=== PATIENT | female | born 2000 | race Caucasian/White ===

== ENCOUNTER → 2019-01-23 16:09 | Outpatient (CLI) | payer OTHER, SELFPAY ==
--- NOTE | 2019-01-23 16:14 | US_ITS ---
STUDY: FIRST TRIMESTER OBSTETRICAL ULTRASOUND REASON FOR EXAM: Female, 18 years old. viability. LMP: 12/03/2018 TECHNIQUE: Transvaginal TECHNICAL QUALITY: Adequate. PRIOR ULTRASOUND: None. FINDINGS: There is visualization of a single gestational sac in a normal intrauterine position. The mean sac diameter (MSD) measures 1.8 cm, indicating an estimated gestational age (EGA) of 6 weeks, 5 days. The gestational sac shape is within normal limits. There is a visualized yolk sac. The yolk sac measures 2.5 mm. The placenta is non-visualized. There is visualization of a live embryo. The crown-rump length (CRL) measures 0.7 cm, indicating an estimated gestational age (EGA) of 6 weeks, 5 days. There is demonstrated cardiac activity with a heart rate of 114/124 bpm. The estimated gestation age (EGA) by LMP is 7 weeks, 2 days. The estimated date of delivery (CATHERINE) by LMP is 09/09/2019 . The estimated gestation age (EGA) by US is 6 weeks, 5 days. The estimated date of delivery (CATHERINE) by US is 09/13/2019. The uterus measures 8.0 x 6.7 x 4.6 cm. There is no demonstrated uterine fibroid. The cervix is closed. The right ovary measures 3.1 x 2.8 x 1.8 cm. There is no right ovarian cyst. There is no visualized right adnexal mass or complex lesion. The left ovary measures 4.1 x 3.0 x 2.4 cm. There is a small complex follicle or left ovarian cyst measuring 1.8 x 1.5 x 1.3 cm. There is no visualized left adnexal mass or complex lesion. There is no fluid in the cul de sac. The trace fluid collection partially surrounding the gestational sac that measures approximately 2.3 x 0.2 cm. US/Transvaginal w/Preg US IMPRESSION: Single live intrauterine 6 weeks 5 days by ultrasound. Estimated delivery date 09/13/2019. The cardiac rate is on the low end of normal between 114 and 120. Small subchronic hemorrhage. Recommend short-term interval follow-up study within 7-14 days.. Electronically Signed: Anabell Werner MD at 16:13 EDT Tel , Service support ,
== END ==
PROVIDERS: Referring Provider Obstetrics & Gynecology; Visit Provider Obstetrics & Gynecology
DX: O36.80X0 Pregnancy with inconclusive fetal viability, not applicable or unspecified (principal); Z3A.00 Weeks of gestation of pregnancy not specified
CPT/HCPCS: 76817

== ENCOUNTER → 2019-02-13 11:34 | Outpatient (CLI) | payer OTHER, SELFPAY ==
[2019-02-13 10:42] VITALS: BMI 22.8
[2019-02-13 12:04] LABS: Absolute Lymphocyte Count 1.77 X10^3/uL (0.83-4.51); Absolute Neutrophil Count 5.6 X10^3/uL (2.0-7.7); Basophil# 0.03 X10^3/uL; Basophil% 0.4 % (0-1); Eosinophil# 0.13 X10^3/uL; Eosinophils% 1.6 % (0-5); Hematocrit 37.1 % (37-47); Hemoglobin 12.3 g/dL (12.0-15.0); Lymphocyte # 1.77 X10^3/ul (4.0); Lymphocyte % 22.2 % (19-41); Mean Corp Hgb Conc 33.2 g/dL (32-36); Mean Corpuscular Hgb 30.4 pg (27.0-32.0); Mean Corpuscular Volume 91.6 fL (81-99); Mean Platelet Vol. 9.8 fl (6.2-12.0); Monocyte# 0.44 X10^3/uL; Monocyte% 5.5 % (0-10); NRBC Flagged by Analyzer 0 % (0-5); Neutrophil # 5.56 X10^3/uL (2.7-7.7); Neutrophil % 69.7 % (47-70); Platelet Count 189 K/mm3 (150-450); RBC Distribution Width CV 13.2 % (11.6-14.6); RBC Distribution Width SD 43.5 fl (35.1-43.9); Red Blood Count 4.05 M/mm3 (4.2-5.4)
[2019-02-13 13:41] LABS: HIV - WCH Non-Reactive (Nonreactive); Rubella IgG 287.7 IU/mL
[2019-02-13 18:04] LABS: Chlamydia Trachomatis by PCR Negative (Negative); Neisserai gonorrhoeae by PCR Negative (Negative); Probe Check PASS; Sample Adequacy Control PASS; Specimen Processing Control PASS
[2019-02-17 02:40] LABS: Rapid Plasmin Reagin (RPR) NONREACTIVE (NONREACTIVE)
== END ==
PROVIDERS: Referring Provider Nurse Practitioner Women's Health; Visit Provider Nurse Practitioner Women's Health
DX: Z34.90 Encounter for supervision of normal pregnancy, unspecified, unspecified trimester (principal)
CPT/HCPCS: 36415; 85025; 86592; 86703; 86762; 86850; 86900; 86901; 87086; 87088; 87491; 87591

== ENCOUNTER → 2019-06-09 15:50 | Outpatient (CLI) | payer OTHER, SELFPAY ==
[2019-06-09 15:09] VITALS: BMI 22.8
[2019-06-09 18:33] LABS: HIV - WCH Non-Reactive (Nonreactive)
[2019-06-09 19:48] LABS: Chlamydia Trachomatis by PCR Negative (Negative); Neisserai gonorrhoeae by PCR Negative (Negative); Probe Check PASS; Sample Adequacy Control PASS; Specimen Processing Control PASS
[2019-06-12 20:07] LABS: HCV Quant. RNA PCR HCV Not Detected IU/mL (.)
[2019-06-12 21:37] LABS: HSV 1 IgG < 0.91 index (0.00-0.90); HSV 2 IgG < 0.91 index (0.00-0.90)
[2019-06-15 03:16] LABS: Rapid Plasmin Reagin (RPR) NONREACTIVE (NONREACTIVE)
== END ==
PROVIDERS: Referring Provider Obstetrics & Gynecology; Visit Provider Obstetrics & Gynecology
DX: Z34.01 Encounter for supervision of normal first pregnancy, first trimester (principal)
CPT/HCPCS: 36415; 86592; 86695; 86696; 86703; 87491; 87522; 87591

== ENCOUNTER → 2019-06-23 | Outpatient (CLI) | payer OTHER, SELFPAY ==
[2019-06-09 15:09] VITALS: BMI 22.8
[2019-06-23 13:59] LABS: Absolute Lymphocyte Count 2.04 X10^3/uL (0.83-4.51); Basophil# 0.06 X10^3/uL; Basophil% 0.5 % (0-1); Eosinophil# 0.17 X10^3/uL; Eosinophils% 1.3 % (0-5); Hematocrit 36.3 % (37-47); Hemoglobin 12.3 g/dL (12.0-15.0); Lymphocyte # 2.04 X10^3/ul (4.0); Lymphocyte % 15.5 % (19-41); Mean Corp Hgb Conc 33.9 g/dL (32-36); Mean Corpuscular Hgb 32.1 pg (27.0-32.0); Mean Corpuscular Volume 94.8 fL (81-99); Mean Platelet Vol. 10.2 fl (6.2-12.0); Monocyte# 0.67 X10^3/uL; Monocyte% 5.1 % (0-10); NRBC Flagged by Analyzer 0 % (0-5); Neutrophil # 9.96 X10^3/uL (2.7-7.7); Neutrophil % 75.9 % (47-70); Platelet Count 180 K/mm3 (150-450); RBC Distribution Width CV 12.5 % (11.6-14.6); RBC Distribution Width SD 43.6 fl (35.1-43.9); Red Blood Count 3.83 M/mm3 (4.2-5.4); White Blood Count 13.1 K/mm3 (4.4-11.0)
[2019-06-23 14:13] LABS: Glucose Challenge Gest 1H 50g 70 mg/dL (70-140)
== END | disposition home or self-care (01) ==
LOC: LAB 13:36
PROVIDERS: Referring Provider Obstetrics & Gynecology; Visit Provider Obstetrics & Gynecology
DX: O26.899 Other specified pregnancy related conditions, unspecified trimester (principal); Z67.91 Unspecified blood type, Rh negative; Z3A.00 Weeks of gestation of pregnancy not specified
CPT/HCPCS: 36415; 82950; 85025; 86850; 86900; 86901

== ENCOUNTER → 2019-07-07 | Outpatient (CLI) | payer OTHER, SELFPAY ==
[2019-06-23 13:55] VITALS: BMI 22.8
--- NOTE | 2019-07-07 09:15 | US_ITS ---
STUDY: SECOND AND THIRD TRIMESTER OBSTETRICAL ULTRASOUND REASON FOR EXAM: Female, 18 years old GROWTH-PLACENTA LAY LMP: 12/07/2018 TECHNIQUE: Transabdominal TECHNICAL QUALITY: Adequate. PRIOR ULTRASOUND: None. FINDINGS: There is a single intrauterine fetus. The fetus is in a cephalic presentation. There is demonstrated cardiac activity with a heart rate of 140 bpm. There is a normal amniotic fluid volume. The largest amniotic fluid pocket measures 5.1 cm. The amniotic fluid index (JENNIFER) is 12.5 cm. The placenta is posterior and low lying but not previa in location. There are Grade 1 placental changes. The cervix measures 4.6 cm in length. The adnexal regions are not visualized. BIOMETRY: BPD: 7.2 cm: 29 weeks, 0 days HC: 27.6 cm: 30 weeks, 2 days AC: 25.0 cm: 29 weeks, 2 days FL: 5.5 cm: 29 weeks, 2 days CI: 75% FL/BPD: 77% FL/HC: FL/AC: 22% HC/AC: 1.10 age by current US: 29 weeks, 4 days. CATHERINE by current US: 09/18/2019. Estimated weight: 1376 grams, +/- 201 grams, 13 %. Age by LMP: 30 weeks, 2 days. CATHERINE by LMP: 09/13/2019. US/OB Limited With Biometrics IMPRESSION: Living intrauterine of 29 weeks 4 days as described above. Electronically Signed: William Long MD at 8:13 EST Tel , Service support ,
[2019-07-07 13:02] LABS: Hepatitis B Surface Antigen Non-Reactive (Nonreactive); Hepatitis C Antibody Non-Reactive (Nonreactive)
== END | disposition home or self-care (01) ==
PROVIDERS: Referring Provider Obstetrics & Gynecology; Visit Provider Obstetrics & Gynecology
DX: O44.42 Low lying placenta NOS or without hemorrhage, second trimester (principal); Z3A.00 Weeks of gestation of pregnancy not specified
CPT/HCPCS: 36415; 76816; 76817; 86803; 87340

== ENCOUNTER → 2019-08-04 | Outpatient (CLI) | payer OTHER, SELFPAY ==
[2019-07-07 10:53] VITALS: BMI 28.9
[2019-07-20 14:01] VITALS: BMI 22.8
--- NOTE | 2019-08-04 12:34 | US_ITS ---
STUDY: SECOND AND THIRD TRIMESTER OBSTETRICAL ULTRASOUND - LIMITED REASON FOR EXAM: Female, 18 years old hx of low lying placenta LMP: December 07, 2018. PRIOR ULTRASOUND: Comparison is made with prior examination of July 07, 2019. TECHNIQUE: Transabdominal and Transvaginal TECHNICAL QUALITY: Adequate. FINDINGS: There is a single intrauterine fetus. The fetus is in a cephalic presentation. There is demonstrated cardiac activity with a heart rate of 1:30 bpm. There is a normal amniotic fluid volume. The largest amniotic fluid pocket measures 3.1 cm x 3.7 cm. The amniotic fluid index (JENNIFER) is 9.5 cm. The placenta is posterior in location and is not low lying. The tip of the placenta is 2.3 cm from the cervix. There are Grade 1 placental changes. The cervix measures 4.0 cm in length. BIOMETRY: BPD: 8.26 cm: 33 weeks, 2 days HC: 30.55 cm: 34 weeks, 1 days AC: 29.52 cm: 33 weeks, 4 days FL: 6.37 cm: 33 weeks, 0 days Age by LMP: 34 weeks, 2 days. CATHERINE by LMP: September 13, 2019. age by prior US: 33 weeks, 4 days. CATHERINE by prior US: September 18, 2019. age by current US: 33 weeks, 4 days. CATHERINE by current US: September 18, 2019. Estimated weight: 2178 grams, +/- 318 grams, 20 percentile. US/OB Limited With Biometrics IMPRESSION: Single live intrauterine gestation with a mean gestational age of 33 weeks and 4 days. There is a posterior placenta. There is no evidence of a placenta previa or low-lying placenta. Electronically Signed: Clarence Parker, at 14:32 EDT , Service support ,
== END | disposition home or self-care (01) ==
LOC: US 12:34
PROVIDERS: Referring Provider Obstetrics & Gynecology; Visit Provider Obstetrics & Gynecology
DX: O44.42 Low lying placenta NOS or without hemorrhage, second trimester (principal); Z3A.00 Weeks of gestation of pregnancy not specified
CPT/HCPCS: 76816; 76817

== ENCOUNTER 2019-08-18 14:35 | Outpatient (CLI) | payer OTHER, SELFPAY ==
[2019-08-18 14:09] VITALS: BMI 22.8
--- NOTE | 2019-08-18 14:37 | US_ITS ---
STUDY: SECOND AND THIRD TRIMESTER OBSTETRICAL ULTRASOUND - LIMITED REASON FOR EXAM: Female, 18 years old. Decreased movement. PRIOR ULTRASOUND: 08/04/2019 TECHNIQUE: Transabdominal ultrasound evaluation was performed. FINDINGS: There is a single intrauterine fetus. The fetus is in a cephalic presentation. There is demonstrated cardiac activity with a heart rate of 130 bpm. There is a normal amniotic fluid volume. The largest amniotic fluid pocket measures 4.7 x 2.9 cm. The amniotic fluid index (JENNIFER) is 11.3 cm. The placenta is posterior in location and is not low lying. There are Grade 2 placental changes. The cervix measures 3.0 cm in length. BIOMETRY: BPD: 8.49 cm: 34 weeks, 2 days HC: 31.09 cm: 34 weeks, 6 days AC: 30.75 cm: 34 weeks, 5 days FL: 6.8 cm: 35 weeks, 0 days Age by LMP: 36 weeks, 2 days. CATHERINE by LMP: 09/13/2019. age by prior US: 35 weeks, 3 days. CATHERINE by prior US: 09/18/2019. age by current US: 34 weeks, 5 days. CATHERINE by current US: 09/24/2019. Estimated weight: 2499 grams, +/- 365 grams, 15 percentile. US/OB Limited With Biometrics IMPRESSION: Single live intrauterine gestation at approximately 34 weeks and 5 days based on the current ultrasound. Electronically Signed: Geo Ruiz, at 16:20 EDT Tel , Service support ,
--- NOTE | 2019-08-18 14:37 | US_ITS ---
STUDY: OBSTETRICAL ULTRASOUND - BIOPHYSICAL PROFILE REASON FOR EXAM: Female, 18 years old. Decreased movement. PRIOR ULTRASOUND: 08/04/2019 TECHNIQUE: Transabdominal ultrasound evaluation was performed. FINDINGS: There is a single intrauterine fetus. The fetus is in a cephalic presentation. There is demonstrated cardiac activity with a heart rate of 138 bpm. There is a normal amniotic fluid volume. The amniotic fluid index (JENNIFER) is 4.5 x 4.2 cm. The placenta is 1.2 BIOPHYSICAL PROFILE: Breathing Movements (FBM): 0 Gross Body Movements (GBM): 2 Tone (FT): 2 Amniotic Fluid Volume (AFV): 2 TOTAL SCORE: 6 / 8 US/Biophysical Profile IMPRESSION: Biophysical profile score 6/8 with no observed breathing motion. Electronically Signed: Geo Ruiz, at 16:20 EDT Tel , Service support ,
[2019-08-18 16:25] VITALS: TEMP 36.8; O2SAT 98
[2019-08-18 16:31] VITALS: BP 129/80; PULSE 78
[2019-08-18 16:35] VITALS: BMI 30.7
--- NOTE | 2019-08-19 07:34 | OB.TRI.PN ---
Progress Notes Date of Service: 08/18/19 Progress Note: nst secondary to abnormal test 10/22 BPP FHT: 125 Moderate variability reactive no decelerations category I tracing [place]: no regular Contractions now 12/24 BPP 2 off for breathing reassuring, nl paty and growth percentile. dc home kick counts Multi Select Codes - Urinary/Genital Urinary/Genital CPT Codes: 80401-82 non-stress test Interp
== END 2019-08-18 17:10 | disposition home or self-care (01) ==
LOC: US 16:08 → WPOUT 16:22 → OBT 16:24
PROVIDERS: Referring Provider Obstetrics & Gynecology; Visit Provider Obstetrics & Gynecology
DX: O28.3 Abnormal ultrasonic finding on antenatal screening of mother (principal); Z3A.00 Weeks of gestation of pregnancy not specified
CPT/HCPCS: 59025; 59050; 76816; 76818; 87081; 99218; G0378

== ENCOUNTER 2019-09-07 15:57 | Inpatient (IN) | payer OTHER, SELFPAY ==
[2019-08-30 14:55] VITALS: BMI 30.7
[2019-09-07] VITALS (45 sets, daily range): BP systolic 111–174; BP diastolic 72–113; PULSE 78–125; TEMP 36.2–36.8; O2SAT 83–100; BMI 30.7; BMI 34.9
[2019-09-07] MEDS: Lactated Ringers 1,000 ML 50 ML IV (16:35)
--- NOTE | 2019-09-07 16:47 | HP.PCM_ITS ---
- Problem List (1) SROM (spontaneous rupture of membranes) Status: Acute (2) Preeclampsia Status: Acute (3) Rh negative state in antepartum period Status: Acute Comment: rhogam given (4) Tobacco use affecting , antepartum Status: Acute Comment: counseled to stop (5) Status: Acute Qualifiers: Comment: declined carrier. [place] low risk. dec afp. anatomy reviewed. 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 Is patient in pain?: No Allergies tramadol Adverse Reaction (Intermediate, Verified 09/07/19 15:32) nausea/vomiting Medications L.acidoph,Paracasei, B.lactis [Probiotic] 1 ea PO DAILY PRN 08/18/19 [History C onfirmed 09/07/19] Vit No.130/Iron/Folic [ Tablet] 1 ea PO DAILY PRN 08/18/19 [History Confirmed 09/07/19] Famotidine 20 mg PO DAILY PRN 09/07/19 [History Confirmed 09/07/19] Loratadine [Allergy] 10 mg PO DAILY PRN PRN 09/07/19 [History Confirmed 09/07/19] Ondansetron HCl [Zofran] 4 mg PO Q4H PRN 09/07/19 [History Confirmed 09/07/19] Psyllium Husk [Fiber] 1 gm PO DAILY PRN PRN 09/07/19 [History Confirmed 09/07/19] Last Menstral Period: 12/13/18 Zika: Zika virus screening: Negative : No PFSH PFSH Medical History Depression with anxiety (Acute) Eating disorder (Acute) Syncope (Acute) Tear of meniscus of left knee (Acute) Surgical History S/P wisdom tooth extraction (Resolved) Family History Grandmother Myocardial infarction Grandfather Diabetes Hypertension CVA (cerebral vascular accident) Father Hypertension Mother Hypertension Heart disease Social History (Updated 09/07/19 @ 16:[address] Tessie Knox MD) Smoking Status: Light Smoker (<10/day) alcohol intake: current details: occasionally substance use type: marijuana caffeine: Yes what type of physical activity do you participate in: walking seatbelt use: always do you feel safe at home: Yes additional social history: Anabel Patient works at [employer] History 1 Elective abortions Hx Para Spontaneous abortions Hx # Term Pregnancies Ectopic pregnancies Hx # Pregnancies Multiple births # of living children HPI est ob 39w: Details: MALINA ONEILL is a 18 year old who presents for routine OB visit. she is having headaches and nausea and vomiting, dizziness, elevated bps and proteinuria OB Visit CATHERINE Calculator Estimated Delivery Date Method Current WG Current Estimate 09/13/19 Ultrasound #1 39w 1d Other Estimates 09/19/19 LMP (Certain) 38w 2d 09/11/19 Ultrasound #2 39w 3d Expected Delivery Route/Plan Labor Preferences- labor support person: Greg pain management options preferred: epidural cut cord/dad catch: Greg cord. Pt mom catch : yes PP control planned: [] discussed possible routes of delivery and associated risks: [] special requests: [] Specific Issue/Plans flu vaccine: given tdap vaccine: given rhogam: given LARC form signed: yes movement and labor precautions reviewed. Problem list reviewed and updated with the most current plan of care details and appropriate orders placed. Relevant counseling for the gestational age provided. Continue routine care and follow up unless otherwise noted in visit notes/problem list details Initial Weight: Not Recorded Date EGA Weight BP Urine Prot Glucose FHR FuHt Pres Dilation Effaced St Visit Note 02/13/19 9w 5d 144 lb 124/68 168 03/14/19 13w 6d 151 lb 2 oz 122/68 Negative Negative 166 NO VB, LOF. 04/10/19 17w 5d 153 lb 4 oz 126/78 Negative Negative 150 05/11/19 22w 1d 162 lb 8 oz 120/74 Negative Negative 145 SM - no vb lof good fm no regular ctx 06/09/19 26w 2d 174 lb 4 oz 128/79 Negative Negative 145 SM- no vb lof good fm no regular ctx requesting std check 06/23/19 28w 2d 179 lb 104/84 145 SM- no vb lof good fm no regular ctx 07/07/19 30w 2d 182 lb 112/82 145 SM- no vb lof good fm no reg ctx 07/20/19 32w 1d 185 lb 2 oz 127/72 Negative Negative 149 MH-Good FM. No VB, LOF. 08/04/19 34w 2d 191 lb 96/54 Negative Negative 130 SM- no vb lof good fm no regular ctx 08/18/19 36w 2d 195 lb 106/74 130 36 Cephalic SM_ no vb lof good fm no regular ctx gbs done 08/25/19 37w 2d 198 lb 124/76 Negative Negative 138 38 Cephalic 1 -3 MH-no VB, LOF, CTX. Good FM 08/30/19 38w 0d 204 lb 122/86 Trace Negative 132 38 Cephalic 1 -3 MH-No VB, LOF. Good FM 09/07/19 39w 1d 204 lb 138/92 1+ Negative srom while checking patient clear lfuid, suspect preeclampsia due to elevated bps and proteinuria today Notes Visit Date: 09/07/19 No visit notes to display Visit Date: 08/30/19 No visit notes to display Visit Date: 08/25/19 No visit notes to display Visit Date: 08/18/19 No visit notes to display Visit Date: 08/04/19 No visit notes to display Visit Date: 07/20/19 No visit notes to display Visit Date: 07/07/19 No visit notes to display Visit Date: 06/23/19 No visit notes to display Visit Date: 06/09/19 No visit notes to display Visit Date: 05/11/19 No visit notes to display Visit Date: 04/10/19 No visit notes to display Visit Date: 03/14/19 NO VB, LOF. ILENE Bean on 03/14/19 Visit Date: 02/13/19 No visit notes to display ACOG First Trimester First Trimester: Desire for , Alcohol, Tobacco Cessation, Illicit/Recreational Drug/Substance Use, Intimate Partner Violence, Barriers to care, Unstable Housing, Communication Barriers, Environmental/Work Hazards, Anticipated Course of Care, Toxoplasmosis Precations, Use of Any medications, Sexual activity, Exercise, Dental Care, Sauna/Hot tub use, Seat Belt use, Childbirth classes/Hospital facilities, , Travel, Indications for US and Screening for Aneuploidy Second Trimester Second Trimester: Signs and Symptoms of Labor, Selecting a care provider, Reproductive Life Planning, Care Planning, Tobacco Cessation, Depression/Anxiety and Intimate Partner Violence Third Trimester Third Trimester: Pain Management Plans, Labor support person(s), Immediate Larc, Movement Monitoring and Infant Feeding Yes ; discussed Trial of Labor after Counseling or discussed Circumcision preference Diagnostics Diagnostics Diagnostics Blood Type A NEGATIVE 06/23/19 Antibody Screen NEGATIVE 06/23/19 Glucose 1 Hr 50 gm 70 mg/dL (70-140) 06/23/19 HIV 1&2 Antibody Non-Reactive (Nonreactive) 06/09/19 Rubella IgG Antibody 287.7 IU/mL 02/13/19 Hgb 12.3 g/dL (12.0-15.0) 06/23/19 Hct 36.3 % (37-47) L 06/23/19 RPR NONREACTIVE (NONREACTIVE) 06/09/19 Details: HIV: Urine Culture: Sequential Screen: NIPT Screen: ROS Const Reports system reviewed and no additional complaints, except as docu Card Reports system reviewed and no additional complaints, except as docu Resp Reports system reviewed and no additional complaints, except as docu GI Reports system reviewed and no additional complaints, except as docu, Reports nausea Reports system reviewed and no additional complaints, except as docu Musc Reports system reviewed and no additional complaints, except as docu Exam Const General: cooperative, healthy appearing, comfortable, anxious [facility] Head: normal to inspection Nose: external nose normal Face and sinus: normal facial exam Neck Neck: normal visual inspection, full ROM, no lymphadenopathy Thyroid: thyroid normal Chest Chest palpation & inspection: normal inspection of the chest Resp Effort & Inspection: normal respiratory effort GI Inspection: normal to inspection Palpation: soft, other (gravid uterus) Other: vertex and appropriate size for gestational age Other: Cervical Exam: Extrem General: pedal edema Results POC Urinalysis 2 Dip (Clinic) Office Urine Glucose Negative Last Edit by Julianna Cadena on 09/07/19 15:38 Office Urine Protein 1+ Last Edit by Julianna Cadena on 09/07/19 15:38 Assessment & Plan Problems 1. Rh negative state in antepartum period O26.899; Z67.91 2. Tobacco use affecting , antepartum O99.330 3. 39 weeks gestation of Z3A.39 4. Encounter for supervision of normal first in first trimester Z34.01 5. SROM (spontaneous rupture of membranes) 6. Preeclampsia O14.90 Plan srom epidural PRN preeclampsia labs, magnesium sulfate if severe pressures rh negative Essential Procedure Criteria Procedure Essential: Yes Criteria Note: labor and Risk to Patient if Procedure Delayed: Threat to patient's life if surgery or procedure is not performed
[2019-09-07 17:01] LABS: Absolute Lymphocyte Count 1.73 X10^3/uL (0.83-4.51); Absolute Neutrophil Count 13.5 X10^3/uL (2.0-7.7); Basophil# 0.03 X10^3/uL; Basophil% 0.2 % (0-1); Eosinophil# 0.13 X10^3/uL; Eosinophils% 0.8 % (0-5); Hematocrit 35.3 % (37-47); Lymphocyte # 1.73 X10^3/ul (4.0); Lymphocyte % 10.7 % (19-41); Mean Corpuscular Hgb 31.2 pg (27.0-32.0); Mean Corpuscular Volume 91.7 fL (81-99); Mean Platelet Vol. 11.8 fl (6.2-12.0); Monocyte# 0.53 X10^3/uL; Monocyte% 3.3 % (0-10); NRBC Flagged by Analyzer 0 % (0-5); Neutrophil # 13.51 X10^3/uL (2.7-7.7); Neutrophil % 83.9 % (47-70); Platelet Count 157 K/mm3 (150-450); RBC Distribution Width CV 13.1 % (11.6-14.6); RBC Distribution Width SD 42.6 fl (35.1-43.9); Red Blood Count 3.85 M/mm3 (4.2-5.4); White Blood Count 16.1 K/mm3 (4.4-11.0)
[2019-09-07 17:27] LABS: AST(SGOT) 16 U/L (15-37); Alanine Aminotransfer ALT/SGPT 17 U/L (13-56); EST Glomerular Filtration Rate 113 mL/min (>60); Est Glom Filt Rate - Afr Amer 137 mL/min (>60); Estimated Creatinine Clearance 125.71 ml/min; Uric Acid 5.8 mg/dL (2.6-6.0)
[2019-09-07 17:27] LABS: Protein, Urine (Random) 37.9 mg/dL (<11.9); Protein:Creat Ratio 127 mg/g CRE (0-200)
[2019-09-07] MEDS: Acetaminophen 325 MG Tablet PO (17:34)
[2019-09-07 17:42] LABS: Prothrombin Time (Protime)PT. 12.4 SECONDS (11.7-14.9)
[2019-09-07 17:43] LABS: Partial Thromboplast Time 26.6 Seconds (24.1-36.2)
[2019-09-07] MEDS: Oxytocin 30 units/NS 500 ml 30 UNITS/500 ML IV.SOLN IV (18:52)
[2019-09-07] MEDS: Lactated Ringers 500 ML 999 ML IV ×2 (20:43→23:04)
[2019-09-07] MEDS: fentaNYL-bupivacaine (epidural) 100 ML BAG EPIDURAL (21:25)
[2019-09-08] VITALS (23 sets, daily range): BP systolic 124–150; BP diastolic 70–103; PULSE 31–105; RESP 16–18; TEMP 36.2–37.4; O2SAT 82–100
[2019-09-08] MEDS: Lactated Ringers 500 ML 999 ML IV (00:57)
--- NOTE | 2019-09-08 01:43 | PCM.OPRPT ---
Problem List (1) SROM (spontaneous rupture of membranes) Status: Acute (2) Preeclampsia Status: Acute (3) Rh negative state in antepartum period Status: Acute Comment: rhogam given (4) Tobacco use affecting , antepartum Status: Acute Comment: counseled to stop (5) Status: Acute Qualifiers: Comment: declined carrier. [place] low risk. dec afp. anatomy reviewed. (6) Supervision of normal first Status: Acute Qualifiers: Comment: PRR CATHERINE 09/13/19 monse Khan Vaginal Delivery Maternal Presentation: Spontaneous Rupture of Membranes, Medically Indicated Induction srom preeclampsia Method of Induction: Pitocin Medical Reason for Induction: Preeclampsia, eclampsia Amniotic Membrane Rupture Type: Spontaneous Amniotic Fluid Description: Clear Final CATHERINE: 09/13/19 Gestational age: 39 Weeks and 2 Days Date of Procedure: 09/08/19 Pre-Operative Diagnosis: srom preeclampsia Post-Operative Diagnosis: same Surgery/ Procedure Performed: Spontaneous Vaginal Delivery Type of Anesthesia: Epidural Description of Procedure: Patient began pushing and delivered the head in the TJ presentation. The head was delivered atraumatically. The anterior and posterior shoulders delivered without complication followed by the rest of the and the infant was placed on the maternal abdomen. Delayed cord clamping was employed for approximately 60 seconds. Cord was clamped and cut and gentle traction was applied to the cord and the placenta delivered spontaneously immediately following it was noted to be intact with three-vessel cord. The perineum and vagina were inspected and noted to have a small left vaginal first-degree laceration that was repaired with a single [id number] stitch of 3-0 Vicryl Rapide. EBL was 350 cc. Patient and tolerated delivery well. Presentation: TJ Placental Delivery Description: Spontaneous Placenta Disposition: [facility] Cord Vessel Description: 3 Vessels Cord Entanglement: None Estimated Blood Loss: 350 Infant A gender: Female Episiotomy Description: None Laceration: Vaginal Extension/lac, 1st degree Medications given after delivery: IV Pitocin Complications: None Multi Select Codes - Urinary/Genital Urinary/Genital CPT Codes: 70128 Vaginal Delivery [facility]
[2019-09-08] MEDS: Oxytocin 30 units/NS 500 ml 30 UNITS/500 ML IV.SOLN 334 UNITS IV (01:56)
[2019-09-08] MEDS: Ondansetron 4 MG/2 ML Vial IV (02:12)
[2019-09-08] MEDS: 0.9% Saline Lock 10 ML Syringe IV (04:28)
[2019-09-08] MEDS: Naproxen 250 MG Tablet 500 MG PO (07:40)
--- NOTE | 2019-09-08 14:40 | CASEMGMT ---
Social Work Assessment Labor and Delivery Unit Date of Intervention: 09/08/2019 Time of Intervention: 14:40 Reason for Referral: FIRST TIME MOM, HX ANXIETY, ANXIETY AND ANOREXIA. History obtained from: MEDICAL [employer]ORDS AND MOTHER OF BABY (MOB) Household composition: MOB IS LIVING WITH FATHER OF BABY (FOB) LESLEY MAY AND FOB?S PARENTS. Patient's parent/guardian status: MOB AND FOB HAVE BEEN TOGETHER FOR OVER A YEAR. , CELESTE MAY IS FIRST CHILD FOR BOTH MOB AND FOB. Educational Status: MOB REPORTS 12TH GRADE EDUCATION, DID NOT GRADUATE. Financial Status: LIMITED INCOME. 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 Supplies: MOB REPORTS HAS ALL NEEDS MET FOR BABY INCLUDING DIAPERS, WIPES, CLOTHES, CAR SEAT, CRIBS, ETC. MOB REPORTS IS BREAST FEEDING AND WILL HAVE BREAST PUMP. Childcare/Caregiver(s): MOB WILL BE PRIMARY CAREGIVER FOR BABY GIRL, CELESTE. FOB WILL ALSO BE CAREGIVER. MOB REPORTS GOOD SUPPORT FROM FOB?S FAMILY. Transportation: MOB VOICES NO ISSUES WITH TRANSPORTATION. Programs/Agencies Involved: [facility] Children Services/Legal Issues: MOB REPORTS HISTORY OF CHILDREN SERVICES A CHILD DUE TO CONCERNS WITH HER MOTHER. Behavioral Health Issues: Mental Health History: MOB REPORTS HISTORY OF ANXIETY, DEPRESSION AND ANOREXIA. MOB STATES DID FOLLOWING WITH COUNSELING IN THE PAST. DENIES ANY CURRENT COUNSELING OR MEDICATION. MOB DENIES NEED FOR ANY REFERRALS FOR COUNSELING AT THIS TIME. MOB REPORTS ABLE TO FIND HEALTHY WAYS TO COPE WITH MENTAL HEALTH. MOB REPORTS DOES REACH OUT TO FAMILY WHEN NEEDED FOR SUPPORT. EDUCATION PROVIDED ON POST DEPRESSION SIGNS AND SYMPTOMS. MOB GIVEN INFORMATIONAL RESOURCES. Substance Use History: MOB ADMITS TO ALCOHOL AND MARIJUANA USE IN THE PAST. MOB DENIES ANY CURRENT USE AND DENIES ANY PLANS ON RETURNING TO USE. MOB ADMITS TO TOBACCO USE BEFORE AND DURING . MOB REPORTS DOES NOT PLAN ON USING TOBACCO ONCE HOME. ?I WAS DOWN TO 5 CIGARETTES A DAY BEFORE COMING TO THE HOSPITAL. I?M JUST GOING TO QUIT.? Support Systems: MOB REPORTS GOOD SUPPORT FROM FOB AND FOB?S FAMILY. MOB STATES ALSO HAS SUPPORT FROM OWN FAMILY. Depression/Shaken Baby/Safe Sleeping REVIEWED AND RESOURCES PROVIDED. ASSESSMENT: MET WITH MOB IN ROOM. INTRODUCED ROLE AND REASON FOR REFERRAL. MOB SITTING UP IN ROCKING CHAIR WITH BABY. MOB REPORTS FEELING WELL. MOB STATES IS BREAST FEEDING AND BABY GIRL, CELESTE IS DOING WELL WITH FEEDINGS. MOB REPORTS HAS GOOD SUPPORT FROM LESLEY WOODY. MOB DISCUSSED HISTORY OF MENTAL HEALTH AND EATING DISORDER OPENLY WITH THIS WORKER. MOB REPORTS FOLLOWED WITH COUNSELING IN THE PAST. MOB REPORTS HAS NOT BEEN ON ANY MEDICATION. MOB DENIES NEED FOR REFERRALS. EDUCATION PROVIDED ON POST DEPRESSION. MOB DENIES ANY QUESTIONS OR CONCERNS. DISCUSSED TOBACCO USE AND MOB REPORTS DOES NOT PLAN ON GOING BACK TO SMOKING ONCE HOME. DISCUSSED ASSESSMENT WITH NURSING WHO REPORTS NO ISSUES OR CONCERNS. PLAN: HOME WITH RESOURCES PROVIDED No other services requested or indicated. -OCTAVIO OSEGUERA, HYDROMETEOROLOGICAL TECHNICIAN,EMBROIDERER HAND.
[2019-09-09 00:17] VITALS: BP 141/85; PULSE 81; RESP 16; TEMP 36
[2019-09-09 03:22] VITALS: BP 122/83; PULSE 81; RESP 16; TEMP 36.2
--- NOTE | 2019-09-09 03:51 | DCINST_ITS ---
Discharge Diet: No Restrictions Discharge Activity: Return to Normal Activity, May not drive while taking narcotic pain medications., May Shower May resume sexual activity in: 4-6 weeks Call your doctor if your incision/area has: Continuous Slow Oozing, Sudden Increased Bleeding, Increased Pain/ Swelling, Increased Redness, Foul Smelling Discharge Additional Instructions: If you experience any of the following, contact your healthcare provider. * Bleeding that soaks a pad every hour for 2 hours * Fever 100.4 or higher * Unrelieved incision or abdominal pain * Swelling, redness, discharge or bleeding from your incision or episiotomy site * Your incision begins to separate * Problems urinating (including inability to urinate or burning while urinating). * Visual changes * Severe headache * Flu-like symptoms * Pain or redness in one of both of your breasts * Pain, warmth, tenderness or swelling in your legs, especially the calf area * Frequent nausea and vomiting * Symptoms of depression or anxiety If you experience any of the following, call 911 or go to the nearest Emergency Room. * Chest pain * Problems breathing * Seizure activity * Partial or complete paralysis of a body part, slurred speech, weakness or drooping of the face, or a sudden inability to walk or hold your balance Allergies/Adverse Reactions: Allergies tramadol Adverse Reaction (Intermediate, Verified 09/07/19 15:32) nausea/vomiting Medications to take at Discharge L.acidoph,Paracasei, B.lactis [Probiotic] 1 ea PO DAILY PRN 08/18/19 Vit No.130/Iron/Folic [ Tablet] 1 ea PO DAILY PRN 08/18/19 Famotidine 20 mg PO DAILY PRN 09/07/19 Loratadine [Allergy] 10 mg PO DAILY PRN PRN 09/07/19 Ondansetron HCl [Zofran] 4 mg PO Q4H PRN 09/07/19 Psyllium Husk [Fiber] 1 gm PO DAILY PRN PRN 09/07/19 Naproxen [Naprosyn] 250 - 500 mg PO Q8H PRN PRN #30 tab 09/09/19 The following prescriptions were given: Naproxen [Naprosyn] 250 - 500 mg PO Q8H PRN PRN #30 tab PRN Reason: MILD PAIN Transmission Status: Pending to [id number] Please Follow Up With: Tessie Knox MD - [phone] When: Call to make an appointment with your doctor in 6 weeks. If you had elevated Blood pressure or 4th degree laceration you will need to be seen in 2 weeks. Primary Care Physician: Care Physician,No Primary [Primary Care Provider] - Test Results: Test results from this visit will be discussed in further detail at your follow- up appointment, if applicable.
[2019-09-09 10:00] VITALS: BP 132/87; PULSE 94; RESP 16; TEMP 36.6
[2019-09-09 10:36] VITALS: BP 132/87; PULSE 94
--- NOTE | 2019-09-09 12:26 | NURSING ---
1210 Pt states she wants to go home today. States she feels able to care for herself and her baby. Discharged to home via wheelchair to private car with baby and significant other.
== END 2019-09-09 12:13 | disposition home or self-care (01) | DRG 807 ==
PROVIDERS: Admitting Provider Obstetrics & Gynecology; Referring Provider Obstetrics & Gynecology; Visit Provider Obstetrics & Gynecology
DX: O14.94 Unspecified pre-eclampsia, complicating childbirth (principal); Z37.0 Single live birth; O71.4 Obstetric high vaginal laceration alone; O99.334 Smoking (tobacco) complicating childbirth; F17.200 Nicotine dependence, unspecified, uncomplicated; Z3A.39 39 weeks gestation of pregnancy
CPT/HCPCS: 59025; 59050; 82565; 82570; 84156; 84450; 84460; 84550; 85025; 85610; 85730; 86850; 86870; 86900; 86901; 99218; J7120; A4216; G0378; J2405

== ENCOUNTER 2019-09-14 15:23 | Outpatient (CLI) | payer OTHER, SELFPAY ==
[2019-09-14] VITALS (10 sets, daily range): BP systolic 120–176; BP diastolic 67–106; PULSE 77–137; RESP 18; TEMP 36.9; O2SAT 98; BMI 34.9; BMI 28.8
[2019-09-14] MEDS: NIFEdipine 10 MG Capsule 20 MG PO (16:36)
[2019-09-14] MEDS: Acetaminophen 500 MG Tablet 1000 MG PO (16:40)
--- NOTE | 2019-09-14 16:44 | NURSING ---
7165, Dr. Knox on unit and requesting update on pt. Informed of pt's BPs since arrival, 144/93, 144/100, 151/106 and 176/100, increase in BP while attempting lab draw with IV. Not successful at this time, pt notes to be difficult stick. Also informed of negative assessment except pt c/o headache. Order received to obtain labs with IV start, delay serial BP's until IV inserted, give Procardia 20 mg IR PO now and cancel Procardia XL 30 mg PO; give Tylenol 1,000 mg PO x1 for headache and if unrelieved, give Oxyir 5 mg PO x1. Call physician with lab results or concerns. Pt informed of plan of care; pt verbalized understanding.
[2019-09-14] MEDS: 0.9% NaCl Peripheral Flush Adult/Peds IV (16:48)
[2019-09-14 16:59] LABS: Protein, Urine (Random) 23.6 mg/dL (<11.9); Protein:Creat Ratio 231 mg/g CRE (0-200)
[2019-09-14 17:01] LABS: Hematocrit 35.3 % (37-47); Hemoglobin 11.9 g/dL (12.0-15.0); Mean Corp Hgb Conc 33.7 g/dL (32-36); Mean Corpuscular Hgb 31.2 pg (27.0-32.0); Mean Corpuscular Volume 92.7 fL (81-99); Platelet Count 283 K/mm3 (150-450); RBC Distribution Width SD 43.8 fl (35.1-43.9); Red Blood Count 3.81 M/mm3 (4.2-5.4); White Blood Count 11.8 K/mm3 (4.4-11.0)
--- NOTE | 2019-09-14 17:04 | NURSING ---
Late entry: Pt seen in office today at 1400 per pt for elevated BP check from delivery. Patient delivered on 09/08/2019. Pt states she saw Dr. Knox and informed to come to [facility] for R/O preeclampsia lab work.
[2019-09-14 17:08] LABS: Prothrombin Time (Protime)PT. 12.3 SECONDS (11.7-14.9)
[2019-09-14 17:09] LABS: Partial Thromboplast Time 26.2 Seconds (24.1-36.2)
[2019-09-14] MEDS: oxyCODONE 5 MG Tablet PO (17:41)
--- NOTE | 2019-09-14 17:42 | NURSING ---
At 1714: Dr. Knox called in with update. States she has viewed 2 of the 3 lab results ordered, still awaiting liver enzyme panel. Updated with medical screening score and provider to examine pt prior to discharge due to pt's chief c/o KWAN on arrival. Also informed of pt's BP's since IV started per previous order received; 127/72 at 1657, pulse 137; 120/67 at 1707, pulse 120; and Procardia IR 20 mg PO given at 1632 as well as current BP 122/73 at 1717, pulse 122 while this RN talking on phone with Dr. Knox. Informed of pt's pulse 120's-130's since Procardia given; pulse 70's-80's prior to Procardia. Also informed that Tylenol 1,000 mg PO given per order, pt still c/o KWAN and states, I think it's starting to be a migraine. Informed that pt notes not eating since this morning. Order received to give pt food, caffeine, BP's q30min until pt feeling better from KWAN. If pt feeling better and liver enzyme results WNL, pt may be discharged home; provider states she evaluated pt in office prior to being sent to triage, ok to be discharged without discharge assessment by this provider, pt to nut picker Procardia script and start tomorrow, pt to see PCP within 1 one week.
[2019-09-14 18:18] LABS: AST(SGOT) 19 U/L (15-37); Alanine Aminotransfer ALT/SGPT 25 U/L (13-56); Creatinine, Serum 0.73 mg/dL (0.55-1.02); EST Glomerular Filtration Rate 108 mL/min (>60); Est Glom Filt Rate - Afr Amer 130 mL/min (>60); Estimated Creatinine Clearance 120.54 ml/min; Uric Acid 6.3 mg/dL (2.6-6.0)
[2019-09-14] MEDS: NIFEdipine 30 MG Tablet PO (18:35)
--- NOTE | 2019-09-14 18:43 | NURSING ---
182: Dr. Knox called and informed of pt's chemistry results, recent BP 134/82 with pulse 103 at 1753 and BP 141/89 with pulse 99 at 1823. Informed that Oxyir 5 mg PO given, pt states her headache is 3-4/10 instead of 7/10 and is even better than when I first got here, the light is not bothering me anymore. Dr. Knox requested hypertension with maintenance medication order set and this RN informed her that according to target BP achieved by PO Nifedipine 20 mg PO, then Nifedipine XL 60 mg PO x1 now and then daily recommended. Order received to give Nifedipine XL 30 mg PO x1 now and pt to picker script tomorrow for Nifedipine XL 30 mg PO and take every evening, pt to get BP cuff for home, no repeat BP necessary and aware of hypertension order vital sign recommendations, pt ok to be discharged home and follow up with Dr. Knox in 1 week and a PCP in 1-2 weeks. Pt informed of orders received, pt notes she is feeling better and wanting to go home, just need to wait for a ride home. Pt to be discharged.
--- NOTE | 2019-09-15 07:56 | OB.TRI.PN ---
Progress Notes Date of Service: 09/14/19 Progress Note: patient seen for elevated bp and headache- labs WNL and headache resolving with medication, given procardia and will start on procardia XL at home. fu in 1 week in office, home bp checks, and fu with pcp in 1-2 weeks Laboratory Studies: Laboratory Tests 09/14/19 09/14/19 09/14/19 Range/Units 16:48 16:48 16:48 WBC 11.8 H (4.4-11.0) K/mm3 RBC 3.81 L (4.2-5.4) M/mm3 Hgb 11.9 L (12.0-15.0) g/dL Hct 35.3 L (37-47) % MCV 92.7 (81-99) fL MCH 31.2 (27.0-32.0) pg MCHC 33.7 (32-36) g/dL RDW Std Deviation 43.8 (35.1-43.9) fl RDW Coeff of Pipe 13.0 (11.6-14.6) % Plt Count 283 (150-450) K/mm3 MPV 10.0 (6.2-12.0) fl PT 12.3 (11.7-14.9) SECONDS INR 1.0 APTT 26.2 (24.1-36.2) Seconds Creatinine 0.73 (0.55-1.02) mg/dL Estim Creat Clear Calc 120.54 ml/min Est GFR (MDRD) Af Amer 130 (>60) mL/min Est GFR (MDRD) Non-Af 108 (>60) mL/min Uric Acid 6.3 H (2.6-6.0) mg/dL AST 19 (15-37) U/L ALT 25 (13-56) U/L U Random Total Protein (<11.9) mg/dL Urine Creatinine (NO RANGE EST.) mg/dL Protein/Creatinin Ratio (0-200) mg/g CRE 09/14/19 Range/Units 15:50 WBC (4.4-11.0) K/mm3 RBC (4.2-5.4) M/mm3 Hgb (12.0-15.0) g/dL Hct (37-47) % MCV (81-99) fL MCH (27.0-32.0) pg MCHC (32-36) g/dL RDW Std Deviation (35.1-43.9) fl RDW Coeff of Pipe (11.6-14.6) % Plt Count (150-450) K/mm3 MPV (6.2-12.0) fl PT (11.7-14.9) SECONDS INR APTT (24.1-36.2) Seconds Creatinine (0.55-1.02) mg/dL Estim Creat Clear Calc ml/min Est GFR (MDRD) Af Amer (>60) mL/min Est GFR (MDRD) Non-Af (>60) mL/min Uric Acid (2.6-6.0) mg/dL AST (15-37) U/L ALT (13-56) U/L U Random Total Protein 23.6 H (<11.9) mg/dL Urine Creatinine 102.00 (NO RANGE EST.) mg/dL Protein/Creatinin Ratio 231 H (0-200) mg/g CRE
== END 2019-09-14 19:15 | disposition home or self-care (01) ==
LOC: WPOUT 15:26 → OBT 15:27
PROVIDERS: Referring Provider Obstetrics & Gynecology; Visit Provider Obstetrics & Gynecology
DX: O16.9 Unspecified maternal hypertension, unspecified trimester (principal); Z3A.00 Weeks of gestation of pregnancy not specified
CPT/HCPCS: 36415; 82565; 82570; 84156; 84450; 84460; 84550; 85027; 85610; 85730; 99218; G0378

== ENCOUNTER → 2019-10-12 | Outpatient (CLI) | payer OTHER, SELFPAY ==
[2019-10-12 15:19] VITALS: BMI 27.0
[2019-10-12 16:52] LABS: Color, Urine Yellow (Yellow); Glucose, Dipstick Normal (Normal); Ketone-Dipstick Negative (Negative); Leukocyte Esterase-Dipstick 25 /ul (Negative); Nitrite-Dipstick Negative (Negative); Occult Blood-Urine 25 /ul (Negative); Protein-Dipstick Negative (Negative); Specific Gravity, Urine 1.015 (1.002-1.030); Urine Bilirubin Dipstick Negative (Negative); Urine Clarity Clear (Clear); Urine Urobilinogen Normal (Normal)
[2019-10-12 17:16] LABS: Anion Gap 6 (5-15); BUN 7 mg/dL (7-18); BUN/Creat Ratio 7.4 RATIO (10-20); Calcium,Total 9.6 mg/dL (8.5-10.1); Chloride 107 mmol/L (98-107); Creatinine, Serum 0.94 mg/dL (0.55-1.02); EST Glomerular Filtration Rate 81 mL/min (>60); Est Glom Filt Rate - Afr Amer 97 mL/min (>60); Glucose 89 mg/dL (74-106); Potassium 3.9 mmol/L (3.5-5.1); Sodium Level 139 mmol/L (136-145)
[2019-10-12 17:25] LABS: Bacteria RARE /hpf (None Seen); Mucous, Urine 1+ /hpf (<or=2+); Red Blood Cells-Urine 0-5 SEEN /hpf (0-5); Squamous Epithelial Cells - UA 0-5 SEEN /hpf (5-10); White Blood Cells 0-5 SEEN /hpf (0-5)
== END | disposition home or self-care (01) ==
LOC: BIMLAB 16:02
PROVIDERS: PCP Internal Medicine; Referring Provider Internal Medicine; Visit Provider Internal Medicine
DX: I10 Essential (primary) hypertension (principal)
CPT/HCPCS: 36415; 80048; 81001

== ENCOUNTER → 2023-12-31 | Outpatient (CLI) | payer OTHER, SELFPAY ==
[2023-12-31 18:00] LABS: Creatinine, Urine (random) < 13.00 mg/dL (NO RANGE EST.); Protein, Urine (Random) < 6.0 mg/dL (<11.9)
[2024-01-03 20:07] LABS: Chlamydia By Nucleic Acid AMP Negative (Negative); Gonococcus By Nucleic Acid AMP Negative (Negative)
[2024-01-06 15:27] LABS: HPV Reflexed? NOT INDICATED
== END | disposition home or self-care (01) ==
LOC: LABSPEC 17:06
PROVIDERS: PCP Internal Medicine; Referring Provider Advanced Practice Midwife; Visit Provider Advanced Practice Midwife
DX: Z34.90 Encounter for supervision of normal pregnancy, unspecified, unspecified trimester (principal); Z87.59 Personal history of other complications of pregnancy, childbirth and the puerperium; Z3A.00 Weeks of gestation of pregnancy not specified
CPT/HCPCS: 82570; 84156; 87086; 87088; 87491; 87591; 88175; G0145

== ENCOUNTER → 2024-01-14 | Outpatient (CLI) | payer OTHER, SELFPAY ==
[2024-01-14 13:41] LABS: Absolute Neutrophil Count 6.8 X10^3/uL (2.0-7.7); Basophil# 0.03 X10^3/uL; Basophil% 0.3 % (0-1); Eosinophils% 1.1 % (0-5); Hematocrit 36.1 % (37-47); Hemoglobin 12.2 g/dL (12.0-15.0); Lymphocyte % 17.9 % (19-41); Mean Corp Hgb Conc 33.8 g/dL (32-36); Mean Corpuscular Hgb 31.2 pg (27.0-32.0); Mean Corpuscular Volume 92.3 fL (81-99); Mean Platelet Vol. 9.6 fl (6.2-12.0); Monocyte# 0.35 X10^3/uL; Monocyte% 3.9 % (0-10); NRBC Flagged by Analyzer 0 % (0-5); Neutrophil # 6.79 X10^3/uL (2.7-7.7); Neutrophil % 76.1 % (47-70); Platelet Count 226 K/mm3 (150-450); RBC Distribution Width CV 12.9 % (11.6-14.6); RBC Distribution Width SD 43.5 fl (35.1-43.9); Red Blood Count 3.91 M/mm3 (4.2-5.4); White Blood Count 8.9 K/mm3 (4.4-11.0)
[2024-01-14 14:15] LABS: AST(SGOT) 14 U/L (15-37); Alanine Aminotransfer ALT/SGPT 25 U/L (13-56); Albumin, Serum 3.4 g/dL (3.2-5.0); Alkaline Phosphatase 49 U/L (45-117); Anion Gap 6 (5-15); BUN 6 mg/dL (7-18); Chloride 109 mmol/L (98-107); EST Glomerular Filtration Rate 131 mL/min (>60); Est Glom Filt Rate - Afr Amer 158 mL/min (>60); Globulin 3.4 g/dL (2.2-4.2); Glucose 102 mg/dL (74-106); Potassium 3.5 mmol/L (3.5-5.1); Protein, Total 6.8 g/dL (6.4-8.2); Sodium Level 138 mmol/L (136-145)
[2024-01-14 14:54] LABS: HIV - WCH Non-Reactive (Nonreactive); Hepatitis B Surface Antigen Non-Reactive (Nonreactive); Hepatitis C Antibody Non-Reactive (Nonreactive); Rubella IgG Reactive (Nonreactive); Syphilis Antibodies Non-reactive
== END | disposition home or self-care (01) ==
PROVIDERS: Referring Provider Advanced Practice Midwife; Visit Provider Advanced Practice Midwife
DX: Z34.90 Encounter for supervision of normal pregnancy, unspecified, unspecified trimester (principal); Z3A.00 Weeks of gestation of pregnancy not specified; Z87.59 Personal history of other complications of pregnancy, childbirth and the puerperium
CPT/HCPCS: 36415; 80053; 85025; 86703; 86762; 86780; 86803; 86850; 86900; 86901; 87340

== ENCOUNTER → 2024-05-19 | Outpatient (CLI) | payer OTHER, MEDICAID, SELFPAY ==
[2024-05-19 14:06] LABS: Hematocrit 33.9 % (37-47); Hemoglobin 11.5 g/dL (12.0-15.0); Mean Corp Hgb Conc 33.9 g/dL (32-36); Mean Corpuscular Hgb 31.4 pg (27.0-32.0); Mean Corpuscular Volume 92.6 fL (81-99); RBC Distribution Width CV 12.7 % (11.6-14.6); RBC Distribution Width SD 43.1 fl (35.1-43.9); Red Blood Count 3.66 M/mm3 (4.2-5.4)
[2024-05-19 14:07] LABS: Absolute Lymphocyte Count 1.86 X10^3/uL (0.83-4.51); Absolute Neutrophil Count 9.1 X10^3/uL (2.0-7.7); Basophil# 0.04 X10^3/uL; Basophil% 0.3 % (0-1); Eosinophil# 0.24 X10^3/uL; Lymphocyte # 1.86 X10^3/ul (0.83-4.51); Lymphocyte % 15.5 % (19-41); Mean Platelet Vol. 10.3 fl (6.2-12.0); Monocyte# 0.51 X10^3/uL; Monocyte% 4.2 % (0-10); NRBC Flagged by Analyzer 0 % (0-5); Neutrophil # 9.14 X10^3/uL (2.7-7.7); Neutrophil % 76.2 % (47-70); Platelet Count 191 K/mm3 (150-450)
[2024-05-19 14:40] LABS: Glucose Challenge Gest 1H 50g 120 mg/dL (70-140)
[2024-05-19 15:15] LABS: HIV - WCH Non-Reactive (Nonreactive); Syphilis Antibodies Non-reactive
== END | disposition home or self-care (01) ==
PROVIDERS: Referring Provider Advanced Practice Midwife; Visit Provider Advanced Practice Midwife
DX: Z34.90 Encounter for supervision of normal pregnancy, unspecified, unspecified trimester (principal)
CPT/HCPCS: 36415; 82950; 85025; 86703; 86780; 86850; 86900; 86901

== ENCOUNTER → 2024-07-14 | Outpatient (CLI) | payer OTHER, MEDICAID, SELFPAY ==
--- NOTE | 2024-07-14 12:00 | US_ITS ---
PROCEDURE: OB LIMITED WITH BIOMETRICS REASON FOR EXAM: growth. COMPARISON: None. FINDINGS Number: 1 Position: Vertex Placental Position: Posterior and not low-lying. Placental Abnormalities: None. DIMENSIONS: Biparietal Diameter: 8.72 cm: 35 weeks 1 day: 24.4 percentile/ Head Circumference: 32.2 cm: 36 weeks and 3 days: 19 percentile/ Abdominal Circumference: 33.3 cm: 37 weeks and 1 day: 78 percentile/ Femur Length: 6.8 cm: 34 weeks 6 days: 9.8 percentile/ ESTIMATED WEIGHT: 2909 g plus/-436 g. ESTIMATED WEIGHT PERCENTILE (24+ weeks): 47 percentile ESTIMATED GESTATIONAL AGE: Baseline: 36 weeks and 4 days By Ultrasound: 35 weeks and 5 days ESTIMATED DATE OF DELIVERY: Baseline: August 07, 2024 By Ultrasound: August 13, 2024 BIOPHYSICAL ASSESSMENT: Amniotic Fluid Volume: Subjectively normal. Amniotic Fluid Index: 15.7 (8-24 cm normal range) Cardiac Motion: 4.7 cm (average) Trunk and Limb Motion: Present. MATERNAL ANATOMY: Adnexa: Neither maternal ovary is successfully identified. Cervical Length (if measured): US/OB Limited With Biometrics IMPRESSION: Single live intrauterine gestation with a mean gestational age of 35 weeks and 5 days. Reading Location: [facility]
== END | disposition home or self-care (01) ==
LOC: OPUS 11:59
PROVIDERS: Referring Provider Obstetrics & Gynecology; Visit Provider Obstetrics & Gynecology
DX: O99.340 Other mental disorders complicating pregnancy, unspecified trimester (principal); F44.5 Conversion disorder with seizures or convulsions; Z87.59 Personal history of other complications of pregnancy, childbirth and the puerperium; Z3A.00 Weeks of gestation of pregnancy not specified
CPT/HCPCS: 76816; 87081

== ENCOUNTER 2024-07-23 23:42 | Outpatient (CLI) | payer OTHER, MEDICAID, SELFPAY ==
[2024-07-23 23:58] VITALS: PULSE 99; O2SAT 96
[2024-07-23 23:59] VITALS: BP 123/85; PULSE 100; RESP 18; TEMP 36.4
[2024-07-24 00:09] VITALS: BMI 35.0
[2024-07-24 00:23] VITALS: PULSE 94; O2SAT 98
[2024-07-24 01:17] LABS: Color, Urine Yellow (Yellow); Glucose, Dipstick Normal (Normal); Ketone-Dipstick 5 mg/dl (Negative); Leukocyte Esterase-Dipstick 500 /ul (Negative); Nitrite-Dipstick Negative (Negative); Occult Blood-Urine 25 /ul (Negative); Protein-Dipstick 15 mg/dl (Negative); Specific Gravity, Urine 1.015 (1.002-1.030); Urine Bilirubin Dipstick Negative (Negative); Urine Clarity Clear (Clear); Urine Urobilinogen Normal (Normal); Urine pH 6.5 (5.0 - 8.0)
[2024-07-24] MEDS: Lactated Ringers 500 ML 999 ML IV (02:30)
[2024-07-24] MEDS: DiphenhydrAMINE 25 MG Capsule PO (02:55)
[2024-07-24 03:28] VITALS: BP 122/67; PULSE 104; PULSE 96; RESP 18; TEMP 36.5; O2SAT 92
[2024-07-24 03:40] LABS: Absolute Lymphocyte Count 2.65 X10^3/uL (0.83-4.51); Absolute Neutrophil Count 8.8 X10^3/uL (2.0-7.7); Basophil# 0.06 X10^3/uL; Basophil% 0.5 % (0-1); Eosinophil# 0.16 X10^3/uL; Eosinophils% 1.3 % (0-5); Hemoglobin 10.4 g/dL (12.0-15.0); Lymphocyte # 2.65 X10^3/ul (0.83-4.51); Lymphocyte % 21.3 % (19-41); Mean Corp Hgb Conc 33.5 g/dL (32-36); Mean Corpuscular Hgb 30.1 pg (27.0-32.0); Mean Corpuscular Volume 89.9 fL (81-99); Mean Platelet Vol. 11.3 fl (6.2-12.0); Monocyte# 0.59 X10^3/uL; Monocyte% 4.7 % (0-10); NRBC Flagged by Analyzer 0 % (0-5); Neutrophil # 8.82 X10^3/uL (2.7-7.7); Neutrophil % 70.8 % (47-70); Platelet Count 215 K/mm3 (150-450); RBC Distribution Width CV 13.5 % (11.6-14.6); RBC Distribution Width SD 43.8 fl (35.1-43.9); Red Blood Count 3.45 M/mm3 (4.2-5.4); White Blood Count 12.5 K/mm3 (4.4-11.0)
[2024-07-24 04:10] LABS: Syphilis Antibodies Nonreactive (Nonreactive)
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
== END 2024-07-24 05:00 | disposition home or self-care (01) ==
LOC: WPOUT 23:47 → WP 23:47
PROVIDERS: Visit Provider Advanced Practice Midwife
DX: O23.43 Unspecified infection of urinary tract in pregnancy, third trimester (principal); O36.0930 Maternal care for other rhesus isoimmunization, third trimester, not applicable or unspecified; Z3A.37 37 weeks gestation of pregnancy
CPT/HCPCS: 96360; 36415; 59025; 59050; 81002; 85025; 86780; 86850; 86900; 86901; 87086; 87088; 99221; G0378

== ENCOUNTER 2024-08-08 15:30 | Inpatient (IN) | payer OTHER, MEDICAID, SELFPAY ==
[2024-08-08] VITALS (29 sets, daily range): BP systolic 118–149; BP diastolic 58–86; PULSE 83–103; RESP 15–18; TEMP 36.4–36.9; O2SAT 99–100; BMI 35.2
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
[2024-08-08] MEDS: Lactated Ringers 1,000 ML 999 ML IV (15:47)
[2024-08-08 16:03] LABS: Absolute Lymphocyte Count 1.81 X10^3/uL (0.83-4.51); Absolute Neutrophil Count 7.4 X10^3/uL (2.0-7.7); Basophil# 0.05 X10^3/uL; Basophil% 0.5 % (0-1); Eosinophil# 0.11 X10^3/uL; Eosinophils% 1.1 % (0-5); Hematocrit 33.2 % (37-47); Lymphocyte # 1.81 X10^3/ul (0.83-4.51); Lymphocyte % 18.3 % (19-41); Mean Corp Hgb Conc 33.1 g/dL (32-36); Mean Corpuscular Hgb 29.6 pg (27.0-32.0); Mean Corpuscular Volume 89.2 fL (81-99); Mean Platelet Vol. 10.8 fl (6.2-12.0); Monocyte# 0.42 X10^3/uL; Monocyte% 4.3 % (0-10); NRBC Flagged by Analyzer 0 % (0-5); Neutrophil # 7.35 X10^3/uL (2.7-7.7); Neutrophil % 74.5 % (47-70); Platelet Count 193 K/mm3 (150-450); RBC Distribution Width CV 13.6 % (11.6-14.6); RBC Distribution Width SD 44.2 fl (35.1-43.9); Red Blood Count 3.72 M/mm3 (4.2-5.4); White Blood Count 9.9 K/mm3 (4.4-11.0)
[2024-08-08] MEDS: fentaNYL-bupivacaine (epidural) 100 ML BAG EPIDURAL (17:18)
[2024-08-08] MEDS: Oxytocin 15 Units/NS 250ml 15 UNITS/250 ML IV.SOLN 2 UNITS IV (18:05)
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
--- NOTE | 2024-08-08 19:04 | DCINST_ITS ---
Discharge Instructions Diet Discharge Diet: No restrictions DC O2, CPAP, BIPAP needs Home O2 Discharge instructions: No Dressing / Incision Discharge Activity: Return to Normal Activity May resume sexual activity in: 6-8 weeks Dressing / Incision Call your doctor if you observe: Fever of 101 or Higher, Coldness, Increased Pain, Numbness or Tingling, Change in Color, Inability to urinate, Inability to have a bowel movement, Using more than 1 pad per hour, Shortness of breath, Dizziness, Fainting spells, Swelling in the ankles, Chest pain, Increased p alpitations (irregular heartbeat), Calf discomfort and Uncontrolled pain Follow Up Care Please Follow Up With: Doris Purdy CNM When: Please call the office to schedule your follow up appointment in 6 weeks. If you had high blood pressure please call to schedule an appointment in 2 weeks. Test Results: Test results from this visit will be discussed in further detail at your follow- up appointment, if applicable. Discharge Plan Admission Admit Date/Time: 08/08/24 15:30 Attending Provider: Doris Purdy Primary Care Provider: Care Physician,Celi Primary Discharge Orders/Prescriptions Prescriptions: No Action DHA 200 mg capsule 200 mg PO DAILY buspirone 15 mg tablet 15 mg PO TID Qty: 60 3RF sertraline [Zoloft] 50 mg tablet 50 mg PO QDAY Qty: 90 4RF aspirin 81 mg tablet,delayed release (DR/EC) 81 mg PO QDAY ondansetron 4 mg tablet,disintegrating 4 mg PO Q6H PRN (Reason: nausea and vomiting) Qty: 90 0RF famotidine [Pepcid AC] 20 mg tablet 20 mg PO BID Qty: 60 3RF fosfomycin tromethamine 3 gram packet 1 packet PO QODAY 1 Days Qty: 1 0RF Referrals / Follow Up: Care Physician,Celi Primary [Primary Care Provider] -
[2024-08-08] MEDS: Oxytocin 15 Units/NS 250ml 15 UNITS/250 ML IV.SOLN 83 UNITS IV (19:30)
[2024-08-09] VITALS: BP 97/73; PULSE 109; RESP 16; TEMP 36.7; O2SAT 96
[2024-08-09 00:08] LABS: Syphilis Antibodies Nonreactive (Nonreactive)
[2024-08-09 03:47] VITALS: BP 116/89; PULSE 92; RESP 17; TEMP 36.8; O2SAT 97
[2024-08-09 07:45] VITALS: BP 121/89; PULSE 79; RESP 16; TEMP 36.5; O2SAT 99
--- NOTE | 2024-08-09 07:52 | PCM.PN.OB ---
Subjective Subjective Patient doing well without complaints. Tolerating PO. Ambulating and voiding without difficulty. Feeding well. Denies chest pain, shortness of breath, calf pain/swelling, fevers, chills, lightheadedness. Objective Data Objective Data Vital Signs: Vital Signs Temp Pulse Resp BP Pulse Ox O2 Del Method 98.2 F 92 17 116/89 H 97 Room Air 08/09/24 03:47 08/09/24 03:47 08/09/24 03:47 08/09/24 03:47 08/09/24 03:47 08/09/24 03:47 Oxygen Delivery Method Room Air Weight: 218 lb Body Mass Index (BMI) 35.2 Intake & Output: Intake and Output for Last 24 Hours 08/07/24 08/08/24 08/09/24 23:59 23:59 23:59 Intake Total 1283.81 / 1283.81 Output Total 800 / 800 Balance 483.81 / 483.81 Lab / Micro Data 08/08/24 15:45 Labs: Laboratory Results - last 24 hr 08/08/24 15:45: WBC 9.9, RBC 3.72 L, Hgb 11.0 L, Hct 33.2 L, MCV 89.2, MCH 29.6, MCHC 33.1, RDW Std Deviation 44.2 H, RDW Coeff of Pipe 13.6, Plt Count 193, MPV 10.8, Immature Gran % (Auto) 1.300 H, Neut % (Auto) 74.5 H, Lymph % (Auto) 18.3 L, [place] % (Auto) 4.3, Eos % (Auto) 1.1, Baso % (Auto) 0.5, Absolute Neuts (auto) 7.4, Absolute Lymphs (auto) 1.81, Nucleated RBC % 0, Syphilis Total Ab Nonreactive, Blood Type A NEGATIVE, Antibody Screen NEGATIVE Physical Exam Const alert and oriented x3 HEENT normocephalic Eyes PERRL Neck full ROM Resp normal respiratory effort GI soft to palpation GI Narrative: FF below U Assessment & Plan (1) Vaginal delivery: COMMENT: KW IAL Girl 40.1 (2) Rh negative state in antepartum period: COMMENT: fetus rh negative!! PLAN: Plan s/p PPD # 1 1. routine post delivery care 2. breast feeding- support given 3. rh negative and baby also negative 4. rubella immune 5. plans home tomorrow
[2024-08-09] MEDS: Ibuprofen 600 MG Tablet PO (10:56)
[2024-08-09 13:00] VITALS: BP 124/88; PULSE 84; RESP 16; TEMP 36.5; O2SAT 98
[2024-08-09 16:03] VITALS: BP 114/73; PULSE 81; RESP 16; TEMP 36.7; O2SAT 97
[2024-08-09] MEDS: Etonogestrel 68 MG IMPLANT SC (17:21)
[2024-08-09] MEDS: Lidocaine 1% (20 ml mdv) 20 ML Vial INFILT (17:22)
--- NOTE | 2024-08-09 17:35 | PRO.PCM_ITS ---
Multi Select Codes Urinary/Genital Urinary/Genital CPT Codes: Other Procedure See Report (nexplanon insertion ) Non-invasive Procedural Procedure Information Date of Procedure: 08/09/24 Pre-Procedure Diagnosis: contraceptive management Post-Procedure Diagnosis: contraceptive management Procedure Performed:: insertion of nexplanon assistant professor of geography: No Special Medications: 2cc of 1% lidocaine Description of procedure: The patient requested the right arm for insertion. The right arm was bent and 8 cm medial to the lateral epicondyle was measured. The area was swabbed with chlorhexadine and injected with 2cc of 1% lidocaine. The device was inserted and the product deployed. The injection site was covered with a steri strip and a band aid and then a pressure dressing. The patient tolerated the procedure well. Complications Complications: No
--- NOTE | 2024-08-09 19:56 | CASEMGMT ---
Assessment for the WP/[place]/SCN Social Work Assessment Labor and Delivery Unit Date of Referral: 08/08/2024 Time of Referral:? 15:40 Referred By: Gurwinder Date of Intervention: ??08/09/2024 Time of Intervention:? 13:00 Reason for Referral:? history of TCH use and PPD ZEUS completed chart review and acknowledges social work consult due to past history of TCH use and PPD.? ZEUS presented to bedside and introduced self to REINA ? Anca.? ZEUS competed social work assessment.? FOCeli present at bedside and participated respectfully in conversation. History obtained from: patient and medical record. Household composition: ?REINA lives with BONG and MOBs 5 year old daughter from a previous relationship.? REINA denies any concerns or issues with housing. Patient's parent/guardian status:? ?REINA reports that she and father of baby (ANTONIO Sheikh) have been together for 3 years.? REINA has a 5 year old daughter from a previous relationship, that annemarie father is in custodial.? REINA current partner has taken on parental role for 5 year old.? REINA states that FOCeli and BONG family is extremely supportive of her first daughter.? Medical History: ???REINA is a23 year old female who is gravita 2 para 1 now 2 following labor and delivery of .? REINA received routine care through [facility], REINA presented to hospital for labor and delivery.? REINA delivered baby on 5at 40 weeks one day gestation.? Baby girl, Lachelle, was born weighing 8 lbs, 8 oz with apgars of 8 and 9 minutes of life respectively.? Baby will follow with Dr. Roberto for pediatrics. Educational Status: REINA went to high school through 11th grade, dropping out her senior year.? BONG gradated high school.? Financial Status: REINA works at [employer] 2-3 days a week.? Plans to spend time at home with baby, is uncertain when she will return to work.? BONG works at [employer] as a server programmer, states he has been there for 5 years.? MOB and BONG state they have recently bought a mobile home and are able to provide for themselves financially. REINA states that she receives food stamps and has the medical card, plans to call to add baby for insurance.? Infant Supplies: MOB has obtained all necessary baby supplies including car seat, safe sleep space, clothes, diapers, and wipes Childcare/Caregiver(s):? MOB plans to be primary pet care associate for baby. FOB will also be involved in daily care.? MOB and FOB live two doors down from FOB mother and grandmother, who will be available when needed.? MOB states her mother will be involved as well.? Transportation:?? Both MOB and FOB drive.? No concerns with transportation. Programs/Agencies Involved: ???[facility] and [facility] for food stamps and medical card? MOB encouraged to contact [facility] to get baby added.? Children Services/Legal Issues:??? MOB deny any children services or legal issues. Behavioral Health Issues: ??Mental Health History: MOB reports to having diagnosis of anxiety, depression, PTSD, pseudo seizures and ?an eating disorder.? MOB also reports to suffering from post after her first daughter was born.?? MOB reports that she has been doing well for the last several years and was not on medications. However, MOB stated she was concerned about post and was started on Zoloft from her OB.? MOB reports she does not have a current counselor, counseling services were provided.? Substance Use History: FOB denies all drug and alcohol use, MOB reports to marijuana use prior to , denies any use during and states she does not plan to use after delivery.? ??Family History: MOB denies any substance or illicit drug use on either MOB or FOB sides of the family, MOB reports to mental health diagnosis on her moms side with depression and anxiety.?Maternal and Infant Drug Screens: none indicated Family/Social Stressors:? MOB denies any family or social stressors Support Systems: ?Parents and grandparents on FOB side, ?Mother on MOB side, dad on MOB side ASSESSMENT:? Mob and baby admitted following labor and delivery.? Upon entering room, FOB was holding baby, baby was wrapped in blanket and sleeping peacefully.? MOB reports to having just fed baby, baby fed for 20 minutes.? MOB and FOB appear to have healthy relationship, both were respectful while the other was talking, would look at each other for confirmation of answers and smiled and laughed often during assessment.? MOB states that she feels more confident after this and delivery, that she is in a better mental place and she is happier.? MOB talkative and receptive to SW involvement and support.? PLAN: ???MOB and baby to be discharged when medially ready.? MOB/parents were provided with literature regarding Help me Grow, safe sleep, shaken baby prevention, and education regarding mood and anxiety disorders to be aware of.? MOB was given additional resources for [facility] maternal mental health programming, [facility] helpline, and online resources for mood and anxiety disorders. MOB receptive and appreciative of resources provided.? No other services requested or indicated. Maritza Estrada, KITCHEN MANAGER, INSURANCE HEALTHCARE CONSULTANT
[2024-08-09 20:05] VITALS: BP 128/77; PULSE 100
== END 2024-08-09 20:14 | disposition home or self-care (01) | DRG 806 ==
LOC: WPOUT 15:37 → WP 15:37
PROVIDERS: Admitting Provider Advanced Practice Midwife; Referring Provider Advanced Practice Midwife; Visit Provider Advanced Practice Midwife
DX: O99.344 Other mental disorders complicating childbirth (principal); Z37.0 Single live birth; F84.5 Asperger's syndrome; F44.5 Conversion disorder with seizures or convulsions; F32.A Depression, unspecified; F41.9 Anxiety disorder, unspecified; Z3A.40 40 weeks gestation of pregnancy; Z79.82 Long term (current) use of aspirin; Z79.899 Other long term (current) drug therapy; Z87.891 Personal history of nicotine dependence
CPT/HCPCS: 59025; 59050; 85025; 86780; 86850; 86900; 86901; 99221; G0378